=== PATIENT | female | born 1940 | race Caucasian/White ===

== ENCOUNTER 2017-10-08 11:48 | Inpatient (IN) | payer OTHER ==
[~2017-10-08] VITALS: Ht 157.5 cm; Wt 68.0 kg
[2017-10-08] MEDS ORDERED: FAMOTIDINE40 MG PO (13:09)
[2017-10-08] MEDS ORDERED: FOLIC ACID1 MG PO (13:09)
[2017-10-08] MEDS ORDERED: HUMULIN 70100 UNIT/2 SUBCUTANEO (13:10)
[2017-10-08] MEDS ORDERED: LANSOPRAZOLE30 MG PO (13:10)
[2017-10-08] MEDS ORDERED: GABAPENTIN300 MG PO (13:10)
[2017-10-08] MEDS ORDERED: MAXIMUM D310000 UNIT PO (13:11)
[2017-10-08] MEDS ORDERED: LOSARTAN-HCTZ1 EAC2 PO (13:11)
[2017-10-08] MEDS ORDERED: SIMVASTATIN20 MG PO (13:11)
[2017-10-17] MEDS ORDERED: MIRALAX17 GM PO (15:23)
[2017-10-17] MEDS ORDERED: ULTRACET PO (15:23)
[2017-10-17] MEDS ORDERED: GLUCERNA237 M1 PO (15:23)
[2017-10-17] MEDS ORDERED: DICY20TA PO (15:23)
== END 2017-10-18 13:34 | disposition home or self-care (01) | DRG 326 ==
LOC: O/R 10-16 05:20 → SURH 10-16 05:20 → SURG 10-16 10:15 → SURH 10-16 13:57
PROVIDERS: Surgery
PROC: 0DV44ZZ Restriction of Esophagogastric Junction, Percutaneous Endoscopic Approach (ICD-10-PCS; 2017-10-16)
PROC: 0BQT4ZZ Repair Diaphragm, Percutaneous Endoscopic Approach (ICD-10-PCS; 2017-10-16)
PROC: 0DQ54ZZ Repair Esophagus, Percutaneous Endoscopic Approach (ICD-10-PCS; 2017-10-16)
PROC: 0DJ08ZZ Inspection of Upper Intestinal Tract, Via Natural or Artificial Opening Endoscopic (ICD-10-PCS; 2017-10-16)
PROC: 0D844ZZ Division of Esophagogastric Junction, Percutaneous Endoscopic Approach (ICD-10-PCS; principal; 2017-10-16 10:15)
DX: K22.0 Achalasia of cardia (principal); K22.3 Perforation of esophagus; K91.72 Accidental puncture and laceration of a digestive system organ or structure during other procedure; K44.9 Diaphragmatic hernia without obstruction or gangrene; E11.42 Type 2 diabetes mellitus with diabetic polyneuropathy; E13.69 Other specified diabetes mellitus with other specified complication; K21.9 Gastro-esophageal reflux disease without esophagitis; E78.4 Other hyperlipidemia; E56.0 Deficiency of vitamin E; M15.0 Primary generalized (osteo)arthritis; I10 Essential (primary) hypertension